=== PATIENT | male | born 1945 | race Caucasian/White ===

== ENCOUNTER → 2022-08-09 14:47 | Outpatient (CLI) | payer MEDICARE, OTHER, SELFPAY ==
--- NOTE | 2022-08-09 | DI.ECHO.S_ITS ---
[place] +---------+ [facility] +---------+ : : [address] : : : : [id number] : : : : Phone: [phone]---------+ Echocardiogram Report + + :Name: BLANE AGUILAR Study Date: 08/09/2022 Height: 72 in : :[facility] ReadingLocation: Weight: 205 lb : : Gender: Male BSA: 2.2 m2 : :: 1945 Age: 76 yrs BP: 141/72 mmHg: :Reason For Study: HYPERTENSION : :Ordering Physician: BARBARA, : :NANO Field Performed By: Kaitlin Appiah : :Referring: NANO JIMENEZ : + + Interpretation Summary The ejection fraction is estimated to be 65-70%. There is mild mitral regurgitation. There is mild tricuspid regurgitation. Procedure: A two-dimensional transthoracic echocardiogram with color flow and Doppler was performed. Comparison is made with the echocardiogram of 06/18/2017. The patient was in sinus rhythm with heart rates between 55-64 bpm during the exam. Left Ventricle: The left ventricular cavity is small. There is normal left ventricular wall thickness. The ejection fraction is estimated to be 65-70%. Left ventricular wall motion is normal. Diastolic parameters suggest probable normal left ventricular diastolic function and normal filling pressures. Right Ventricle: The right ventricle is normal in size and function. Atria: The left atrial size is normal. Right atrial size is normal. There is no Doppler evidence for an interatrial shunt. Mitral Valve: The mitral valve is normal in structure and function. There is mild mitral regurgitation. Aortic Valve: The aortic valve is trileaflet. The aortic valve opens well. There is no aortic valve stenosis. No aortic regurgitation is present. Tricuspid Valve: The tricuspid valve is normal in structure and function. There is mild tricuspid regurgitation. Pulmonic Valve: The pulmonic valve leaflets are thin and pliable; valve motion is normal. There is mild pulmonic regurgitation. Great Vessels: The aortic root is normal size. The dimensions of the ascending aorta are normal. The IVC is of normal diameter and collapses greater than 50% with a sniff. This suggests a low right atrial pressure of 3 mm Hg. Pericardium/ Pleura There is no pericardial effusion. There is no pleural effusion. MMode/2D Measurements & Calculations LVIDd: 3.5 cm LVOT diam: 1.8 cm LVIDs: 2.3 cm Ao root diam: 3.5 cm FS: 32.2 % asc Aorta Diam: 3.6 cm IVSd: 0.97 cm Ao Arch Diam (Prox Trans): 2.5 cm LVPWd: 0.95 cm LV castellon. diameter/BSA (cm/m^2): 1.6 LV sys. diameter/BSA (cm/m^2): 1.1 LA A2 area: 20.0 cm2 RA long axis: 4.3 cm LA A4 area: 16.4 cm2 RA area: 13.8 cm2 LA length (vol): 5.0 cm RA vol: 37.8 ml LA vol: 55.3 ml RA : 17.6 ml/m2 LA vol index: 25.7 ml/m2 IVC diam: 1.7 cm RVD1 (basal): 3.3 cm RVD2 (mid): 3.1 cm TAPSE: 2.9 cm Doppler Measurements & Calculations Ao V2 max: 130.3 cm/sec LVOT Max Napoleon: 115.0 cm/sec Ao V2 mean: 97.7 cm/sec LV V1 max P.3 mmHg Ao max P.8 mmHg LV V1 VTI: 27.6 cm Ao mean P.1 mmHg KAILEE(I,D): 2.3 cm2 Ao V2 VTI: 30.5 cm KAILEE(V,D): 2.3 cm2 sev ratio: 0.91 KAILEE indexed to BSA (cm^2/m^2): 1.1 MV E max napoleon: 74.0 cm/sec TR max napoleon: 247.3 cm/sec MV A max napoleon: 91.4 cm/sec TR max P.6 mmHg MV E/A: 0.81 PA V2 max: 106.7 cm/sec Med Peak E' Napoleon: 6.6 cm/sec PA V2 mean: 71.1 cm/sec E/E' med: 11.3 PA mean P.3 mmHg Lat Peak E' Napoleon: 8.6 cm/sec PA pr(Accel): 39.6 mmHg E/E' lat: 8.6 E/e' average: 10.0 MV dec time: 0.33 sec RACQUEL): 70.8 ml Reading Physician:01:24 PM
== END ==
PROVIDERS: PCP Nurse Practitioner Family; Referring Provider Nurse Practitioner Family; Visit Provider Nurse Practitioner Family
DX: I08.1 Rheumatic disorders of both mitral and tricuspid valves (principal); I48.0 Paroxysmal atrial fibrillation; I10 Essential (primary) hypertension
CPT/HCPCS: 93306

== ENCOUNTER 2023-11-08 20:19 | Emergency (ER) | payer MEDICARE, OTHER, SELFPAY ==
[2023-11-08] VITALS (7 sets, daily range): BP systolic 113–172; BP diastolic 54–78; PULSE 69–74; RESP 14–22; TEMP 38.4; O2SAT 93–96; BMI 29.5
--- NOTE | 2023-11-08 21:41 | DI.CT.S_ITS ---
PROCEDURE: CT KIDNEY URETER BLADDER (KUB) INDICATIONS: fever, new urinary incontinence had sx 2/15 TECHNIQUE: Axial sections were acquired from the lung bases to the pubic symphysis. Coronal and sagittal reformats were performed. For radiation dose reduction, the following was used: automated exposure control, adjustment of mA and/or kV according to patient size. COMPARISON: [facility], CT, CT KUB, 07/23/2023, 11:42. FINDINGS: Image quality: Diagnostic. Lower Chest: Right basilar possible consolidative versus masslike opacities measuring up to 1.6 cm. These are new compared to prior. URINARY: Right Kidney: [id number] hydronephrosis. Right Ureter: Obstructing stone within the distal ureter measuring 7 mm and 1073 Hounsfield units. Left Kidney: Nonobstructing 3 mm left renal calcifications. Left Ureter: There is a double-J ureteral stent with proximal pigtail in the proximal ureter and distal pigtail within the urethra. Bladder: Decompressed, limiting evaluation. No stones. ABDOMEN: Liver: No contour-deforming solid mass. Gallbladder: No radiopaque gallstones or wall thickening. Biliary ducts: No biliary dilation. Pancreas: No ductal dilation. Spleen: Size is within normal limits. Adrenal Glands: No adrenal nodules. Stomach and Bowel: Normal colonic caliber, without significant wall thickening. Moderate burden of stool throughout the colon. Normal appendix. Peritoneum: No abnormal intraperitoneal fluid. No free air. Ventral Wall: No hernia. Abdominal Nodes: No enlarged retroperitoneal or mesenteric lymph nodes. Vessels: Aorta and inferior vena cava are normal in size. Atherosclerotic vascular calcifications. PELVIS: Pelvic Organs: Unremarkable. Pelvic Nodes: Unremarkable. Miscellaneous: Small bilateral fat containing inguinal hernias are seen. Bones: Degenerative changes of the spine. Most pronounced at L5-S1. IMPRESSION: 1. Obstructing stone within the distal right ureter measuring 7 mm and 1073 Hounsfield units. There is mild to moderate upstream hydroureteronephrosis. 2. Nonobstructing 3 mm left renal calcifications. 3. Double-J ureteral stent within the left ureter with proximal pigtail in the proximal ureter and distal pigtail within the urethra. Recommend correlation with proper positioning. 4. Consolidated versus masslike opacities at the right lung base are new compared to prior measuring up to 1.6 cm. Recommend 3 month follow-up CT to assess for resolution. Dictated by: Moshe Winn M.D. on 11/08/2023 at 22:14 Approved by: Moshe Winn M.D. on 11/08/2023 at 22:20
[2023-11-08] MEDS: ACETAMINOPHEN 325 MG TABLET 975 MG PO (22:06)
[2023-11-08 22:23] LABS: Add Manual Diff / Slide Review NO; Basophils Absolute Auto 100 /uL (0-100); Basophils Percent Auto 0.6 % (0-2); Eosinophils Absolute Auto 0 /uL (0-450); Eosinophils Percent Auto 0.1 % (2-4); Hematocrit 42.9 % (41-53); Hemoglobin 14.5 g/dL (13.5-17.5); Lymphocytes Absolute Auto 1000 /uL (1100-4500); Lymphocytes Percent Auto 6.1 % (25-40); Mean Corpuscular HGB Conc 33.9 % (30-36); Mean Corpuscular Hemoglobin 32.5 PG (26-34); Mean Corpuscular Volume 95.9 fL (80-100); Monocytes Absolute Auto 1200 /uL (0-900); Monocytes Percent Auto 7.8 % (3-14); Neutrophils Absolute Auto 13700 /uL (1500-7000); Neutrophils Percent Auto 85.4 % (50-75); Platelet Count 184 X10^3/uL (150-400); Red Blood Cell Count 4.47 X10^6/uL (4.5-5.9); Red Cell Distribution Width 12.8 % (11.6-14.8)
[2023-11-08 22:35] LABS: Alanine Aminotransferase 18 IU/L (<50); Albumin 4.1 g/dL (3.5-5.0); Albumin Globulin Ratio 1.2 (1.0-2.8); Alkaline Phosphatase 105 U/L (38-126); Aspartate Aminotransferase 24 IU/L (17-59); BUN Creatinine Ratio 24.8 (6-22); Bilirubin Total 1.2 mg/dL (0.2-1.3); Blood Urea Nitrogen 33 mg/dL (9-20); Calcium 9.3 mg/dL (8.4-10.2); Carbon Dioxide 25 mmol/L (22-32); Chloride 106 mmol/L (98-107); Estimated Glomerular Filt Rate 54 mL/min (>60); Globulin 3.4 g/dL (1.7-4.1); Glucose 117 mg/dL (80-110); HEMOLYSIS 23 (0-50); Lactate (Lactic Acid) 1.7 mmol/L (0.7-2.1); Potassium 4.2 mmol/L (3.4-5.1); Sodium 138 mmol/L (137-145); Total Protein 7.5 g/dL (6.3-8.2)
[2023-11-08 22:52] LABS: Procalcitonin 0.16 ng/mL (<0.5)
[2023-11-08 23:16] LABS: Appearance Urine UA TURBID; Bilirubin Urine UA NEGATIVE (NEGATIVE); Color Urine UA YELLOW; Glucose Urine UA NEGATIVE (Negative); Ketones Urine UA TRACE (NEGATIVE); Leukocyte Esterase Urine UA 2+ (NEGATIVE); Nitrite Urine UA NEGATIVE (Negative); Occult Blood Urine UA 3+ (Negative); Protein Urine UA 3+ (Negative); Specific Gravity Urine UA 1.025 (1.000-1.035)
[2023-11-08 23:20] LABS: Urine Volume Low Vol <10mL (spun)
[2023-11-08 23:22] LABS: Bacteria Urine Many (>30); Mucus Urine 1+ (Negative); RBC Urine 5-10/HPF (0-5/HPF); Squamous Epithelial Cell Urine 0-1 /HPF (0-5/HPF); Transitional Epi Cells Urine 0-1/HPF (0-5/HPF); WBC Urine 30-100/HPF (0-5/HPF)
[2023-11-08 23:23] LABS: Culture Indicated Urine Specimen Cultured
--- NOTE | 2023-11-08 23:39 | DI.RAD.S_ITS ---
PROCEDURE: XR CHEST 1V INDICATIONS: fever,congestion O2 sats 93-94% TECHNIQUE: One view of the chest was acquired. COMPARISON: None. FINDINGS: Surgical changes and devices: None. Lungs and pleura: Lungs are clear. No pleural effusions or pneumothorax. Mediastinum: Mediastinal contours appear normal. Heart size is normal. Bones and chest wall: No suspicious bony lesions. Overlying soft tissues appear unremarkable. IMPRESSION: No acute cardiopulmonary abnormality is seen. Dictated by: Moshe Winn M.D. on 11/09/2023 at 0:11 Approved by: Moshe Winn M.D. on 11/09/2023 at 0:11
--- NOTE | 2023-11-08 23:43 | ED_ITS ---
HPI - Male Genitourinary General Chief complaint: Urogenital-Male Stated complaint: urinary incontinence Time Seen by Provider: 11/08/23 21:40 Source: patient Mode of arrival: Ambulatory History of Present Illness HPI Narrative: 77-year-old male history of hypertension, dyslipidemia, bladder cancer with recent surgery on his bladder as well as on the left ureter with removal of mass of the left ureter. Patient states he is scheduled to have the right-sided ureteral stone removed has not 19 of November. Patient states he came in today because he developed hairs in his had worsening incontinence. He has been in touch with his Urology team at [facility]. No chest pain or shortness of breath no abdominal back or flank pain. No dysuria urgency but is having incontinence. Patient states had some mild constipation. No cough, cold or congestion. Related Data Home Medications Medication Instructions Recorded Confirmed ASPIRIN (Aspirin EC) 81 mg PO Q DAY ##0 02/08/11 10/02/18 Fish Oil 3,000 mg PO Q DAY ##0 02/08/11 10/02/18 sildenafil 50 mg tablet (Viagra) 50 mg PO PRN ##0 02/08/11 10/02/18 naproxen sodium 220 mg tablet Q DAY ##0 05/06/12 10/02/18 calcium carbonate 500 mg calcium 2 tab PO QDAY ##0 05/10/16 10/02/18 (1,250 mg) tablet cholecalciferol (vitamin D3) 10 400 unit PO QDAY ##0 05/10/16 10/02/18 mcg (400 unit) capsule (Vitamin D3) mirtazapine 15 mg tablet 15 mg PO DAILY 10/02/18 10/02/18 Previous Rx's Medication Instructions Recorded valacyclovir 1 gram tablet 1,000 mg PO QDAY #90 tabs 07/30/16 bupropion HCl 150 mg tablet,12 hr 150 mg PO BID #180 tabs 01/31/17 sustained-release (Wellbutrin SR) ranitidine HCl 150 mg tablet 150 mg PO BID #60 tabs 05/07/17 (Zantac) apixaban 5 mg tablet (Eliquis) 5 mg PO BID #60 tabs 05/30/17 diltiazem HCl 120 mg 120 mg PO BID #180 mg 05/30/17 capsule,extended release 24 hr Allergies Allergy/AdvReac Type Severity Reaction Status Date / Time citalopram [CITALOPRAM] AdvReac Mild UNKNOWN, Verified 11/09/23 00:21 DISCOMFORT Review of Systems Review of Systems ROS Unobtainable: All systems reviewed & are unremarkable except as noted in HPI and below Patient History Medical History Insomnia, unspecified Snoring Obstructive sleep apnea of adult Atrial fibrillation (~05/2017) Social History marital status: details: rolando Noguera, lives on [place] household members: spouse lives independently: Yes caregiver/support person: No Smoking Status: Never smoker Smoking Status: Never smoker alcohol intake frequency: a few times a month Exam Narrative Exam Narrative: GENERAL: Alert and oriented x three, male in mild distress. Patient feels warm to the touch. HEENT: Head normocephalic, atraumatic, EOMI, pupils reactive, face symmetric, moist mucous membranes NECK: Supple, full range of motion CARDIOVASCULAR: Regular rate and rhythm without murmurs, rubs or gallops. RESPIRATORY: Breath sounds equal bilaterally, no wheezes rales or rhonchi. ABDOMEN: Soft, nontender. Normoactive bowel sounds all 4 quadrants. No guarding or rebound, rigidity, no mass : No CVA tenderness, patient has string from urethra. EXTREMITIES: Normal range of motion, no clubbing or edema. Neurovascularly intact NEUROLOGICAL: Cranial nerves II through XII grossly intact. Moving all extremities SKIN: Warm, dry, no petechiae, no rashes or lesions. Initial Vital Signs Initial Vital Signs: Vital Signs Temperature 101.1 F H 11/08/23 21:07 Pulse Rate 73 11/08/23 21:07 Respiratory Rate 16 11/08/23 21:07 Blood Pressure 172/78 H 11/08/23 21:07 Pulse Oximetry 96 11/08/23 21:07 Oxygen Delivery Method Room Air 11/08/23 21:07 Course Orders Ordered: ED Orders 11/08/23 21:40 EKG-12 Lead Stat 11/08/23 21:41 CT kidney ureter bladder (KUB) Stat 11/08/23 22:13 Complete Blood Count AUTO DIFF Stat Comprehensive Metabolic Panel Stat Lactate (Lactic Acid) Stat Procalcitonin Stat 11/08/23 23:00 Urinalysis and Microscopic Stat Urine Culture Stat 11/08/23 23:17 Blood Culture Stat 11/08/23 23:39 XR chest 1V Stat 11/09/23 01:05 COVID19 -Nasal RAPID Stat Sodium Chloride (Normal Saline 0.9%) 1,000 mls @ 125 mls/hr IV BOLUS ONE Stop: 11/09/23 11:10 Last Infusion: 11/09/23 04:41 Dose: Infused Documented By: Infusion: 11/09/23 03:21 Dose: 999 mls/hr Documented By: Admin: 11/09/23 03:13 Dose: 125 mls/hr Documented By: EMERALD NOREPINEPHRINE BITARTRATE/D5W (Levophed) 4 mg in 250 mls @ 34.019 mls/hr IV TITRATE PORTER; Protocol Last Admin: 11/09/23 05:19 Dose: 0.1 mcg/kg/min, 34.019 mls/hr Documented By: EMERALD Discontinued Medications Acetaminophen (Acetaminophen 325 Mg Tablet) 975 mg PO NOW ONE Stop: 11/08/23 21:41 Last Admin: 11/08/23 22:06 Dose: 975 mg Documented By: RADHA Sodium Chloride (Normal Saline 0.9%) 1,000 mls @ 1,000 mls/hr IV BOLUS ONE Stop: 11/09/23 00:43 Last Admin: 11/09/23 01:20 Dose: Not Given Documented By: NEETA Levofloxacin (Levaquin) 750 mg in 150 mls @ 100 mls/hr IV NOW ONE Stop: 11/09/23 01:14 Last Infusion: 11/09/23 02:27 Dose: Infused Documented By: Admin: 11/09/23 00:19 Dose: 100 mls/hr Documented By: NEETA Sodium Chloride (Normal Saline 0.9%) 2,121 mls @ 707 mls/hr 30 ml/kg infuse over 3 hr (2121 ml) IV NOW ONE Stop: 11/09/23 04:11 Last Infusion: 11/09/23 03:10 Dose: Infused Documented By: Admin: 11/09/23 00:19 Dose: 707 mls/hr Documented By: NEETA Piperacillin Sod/Tazobactam (Sod 4.5 gm/ Sodium Chloride) 100 mls @ 200 mls/hr IV NOW ONE Stop: 11/09/23 01:44 Last Infusion: 11/09/23 03:10 Dose: Infused Documented By: Admin: 11/09/23 02:35 Dose: 200 mls/hr Documented By: EMERALD Sodium Chloride (Normal Saline 0.9%) 1,000 mls @ 500 mls/hr IV BOLUS ONE Stop: 11/09/23 05:17 Last Admin: 11/09/23 04:41 Dose: 125 mls/hr Documented By: EMERALD Ibuprofen (Ibuprofen 400 Mg Tablet) 800 mg PO NOW ONE Stop: 11/08/23 23:40 Last Admin: 11/09/23 00:19 Dose: 800 mg Documented By: NEETA Tamsulosin HCl (Tamsulosin 0.4 Mg Capsule) 0.4 mg PO NOW ONE Stop: 11/09/23 00:50 Last Admin: 11/09/23 00:54 Dose: 0.4 mg Documented By: NEETA Vital Signs Vital signs: Vital Signs - 8 hr 11/08/23 22:23 11/08/23 22:25 11/08/23 22:25 Temperature Pulse Rate 74 72 Respiratory Rate 16 Blood Pressure 138/65 Pulse Oximetry 95 94 Oxygen Delivery Method 11/08/23 22:30 11/08/23 22:30 11/08/23 23:00 Temperature Pulse Rate 71 Respiratory Rate 14 Blood Pressure 134/59 L 116/58 L Pulse Oximetry 96 Oxygen Delivery Method Room Air 11/08/23 23:00 11/08/23 23:26 11/08/23 23:26 Temperature 101.1 F H 101.1 F H Pulse Rate 69 Respiratory Rate 21 Blood Pressure Pulse Oximetry 93 Oxygen Delivery Method Room Air 11/08/23 23:30 11/08/23 23:30 11/09/23 00:00 Temperature Pulse Rate 73 70 Respiratory Rate 22 20 Blood Pressure 113/54 L Pulse Oximetry 93 95 Oxygen Delivery Method 11/09/23 00:00 11/09/23 00:30 11/09/23 00:30 Temperature Pulse Rate 66 Respiratory Rate 20 Blood Pressure 114/69 111/58 L Pulse Oximetry 94 Oxygen Delivery Method 11/09/23 00:49 11/09/23 01:00 11/09/23 01:00 Temperature 98.1 F Pulse Rate 64 Respiratory Rate 16 Blood Pressure 105/59 L Pulse Oximetry 97 Oxygen Delivery Method 11/09/23 01:30 11/09/23 01:30 11/09/23 02:00 Temperature Pulse Rate 64 Respiratory Rate 13 Blood Pressure 106/57 L 105/57 L Pulse Oximetry 95 Oxygen Delivery Method 11/09/23 02:00 11/09/23 02:30 11/09/23 02:30 Temperature Pulse Rate 63 62 Respiratory Rate 18 19 Blood Pressure 103/57 L Pulse Oximetry 95 94 Oxygen Delivery Method Room Air 11/09/23 03:00 11/09/23 03:00 11/09/23 03:03 Temperature Pulse Rate 61 62 Respiratory Rate 17 19 Blood Pressure 99/55 L Pulse Oximetry 94 94 Oxygen Delivery Method Room Air 11/09/23 03:04 11/09/23 03:04 11/09/23 03:10 Temperature Pulse Rate 61 Respiratory Rate 17 Blood Pressure 94/53 L 93/52 L Pulse Oximetry 95 Oxygen Delivery Method 11/09/23 03:10 11/09/23 03:20 11/09/23 03:20 Temperature Pulse Rate 61 63 Respiratory Rate 13 23 Blood Pressure 93/52 L Pulse Oximetry 94 95 Oxygen Delivery Method 11/09/23 03:30 11/09/23 03:30 11/09/23 03:40 Temperature Pulse Rate 63 Respiratory Rate 13 Blood Pressure 106/58 L 93/55 L Pulse Oximetry 94 Oxygen Delivery Method Room Air 11/09/23 03:40 11/09/23 03:50 11/09/23 03:50 Temperature Pulse Rate 63 64 Respiratory Rate 16 12 Blood Pressure 94/53 L Pulse Oximetry 93 93 Oxygen Delivery Method Room Air 11/09/23 04:00 11/09/23 04:00 11/09/23 04:10 Temperature Pulse Rate 67 64 Respiratory Rate 16 9 L Blood Pressure 106/58 L Pulse Oximetry 94 95 Oxygen Delivery Method 11/09/23 04:10 11/09/23 04:20 11/09/23 04:20 Temperature Pulse Rate 63 Respiratory Rate 12 Blood Pressure 106/57 L 92/53 L Pulse Oximetry 94 Oxygen Delivery Method 11/09/23 04:30 11/09/23 04:30 11/09/23 04:40 Temperature 97.9 F Pulse Rate 63 Respiratory Rate 8 L Blood Pressure 104/59 L 94/50 L Pulse Oximetry 94 Oxygen Delivery Method Room Air 11/09/23 04:40 11/09/23 04:50 11/09/23 04:50 Temperature Pulse Rate 64 62 Respiratory Rate 11 L 12 Blood Pressure 102/55 L Pulse Oximetry 93 93 Oxygen Delivery Method 11/09/23 05:00 11/09/23 05:00 11/09/23 05:10 Temperature Pulse Rate 62 Respiratory Rate 14 Blood Pressure 92/51 L 131/65 Pulse Oximetry 93 Oxygen Delivery Method 11/09/23 05:10 11/09/23 05:20 11/09/23 05:20 Temperature Pulse Rate 79 63 Respiratory Rate 26 H 13 Blood Pressure 103/53 L Pulse Oximetry 94 95 Oxygen Delivery Method MDM - Male Genitourinary Lab Data 11/08/23 22:13 11/08/23 22:13 Labs: Lab Results 11/08/23 11/08/23 11/09/23 Range/Units 22:13 23:00 01:05 WBC 16.0 H (4.5-11.0) X10^3/uL RBC 4.47 L (4.5-5.9) X10^6/uL Hgb 14.5 (13.5-17.5) g/dL Hct 42.9 (41-53) % MCV 95.9 (80-100) fL MCH 32.5 (26-34) PG MCHC 33.9 (30-36) % RDW 12.8 (11.6-14.8) % Plt Count 184 (150-400) X10^3/uL Neut % (Auto) 85.4 H (50-75) % Lymph % (Auto) 6.1 L (25-40) % Wheeler % (Auto) 7.8 (3-14) % Eos % (Auto) 0.1 L (2-4) % Baso % (Auto) 0.6 (0-2) % Neut # (Auto) 46134 H (9981-3703) /uL Lymph # (Auto) 1000 L (2128-8729) /uL Wheeler # (Auto) 1200 H (0-900) /uL Eos # (Auto) 0 (0-450) /uL Baso # (Auto) 100 (0-100) /uL Sodium 138 (137-145) mmol/L Potassium 4.2 (3.4-5.1) mmol/L Chloride 106 (98-107) mmol/L Carbon Dioxide 25 (22-32) mmol/L BUN 33 H (9-20) mg/dL Creatinine 1.33 H (0.66-1.25) mg/dL Estimated GFR 54 L (>60) mL/min BUN/Creatinine Ratio 24.8 H (6-22) Glucose 117 H (80-110) mg/dL Lactate 1.7 (0.7-2.1) mmol/L Calcium 9.3 (8.4-10.2) mg/dL Total Bilirubin 1.2 (0.2-1.3) mg/dL AST 24 (17-59) IU/L ALT 18 (<50) IU/L Alkaline Phosphatase 105 (38-126) U/L Total Protein 7.5 (6.3-8.2) g/dL Albumin 4.1 (3.5-5.0) g/dL Globulin 3.4 (1.7-4.1) g/dL Albumin/Globulin Ratio 1.2 (1.0-2.8) Procalcitonin 0.16 (<0.5) ng/mL Urine Color Yellow Urine Appearance Turbid Urine pH 6.0 (4.5-8.0) Ur Specific [place] 1.025 (1.000-1.035) Urine Protein 3+ H (Negative) Urine Glucose (UA) Negative (Negative) g/dL Urine Ketones Trace H (NEGATIVE) Urine Occult Blood 3+ H (Negative) Urine Nitrate Negative (Negative) Urine Bilirubin Negative (NEGATIVE) Urine Urobilinogen 1.0 (0.2) E.U./dL Ur Leukocyte Esterase 2+ H (NEGATIVE) Urine RBC 5-10/hpf H (0-5/HPF) Urine WBC 30-100/hpf H (0-5/HPF) Ur Squamous Epith Cells 0-1 /hpf (0-5/HPF) Ur Transition Epith Cell 0-1/hpf (0-5/HPF) Urine Bacteria Many (>30) H (None) Urine Mucus 1+ H (Negative) Ur Culture Indicated? Specimen cultured Vol Urine Centrifuged Low vol <10ml (spun) A SARS-CoV-2 (PCR) Negative (Negative) Urine Dip Bedside Urine Glucose Negative Bedside Urine Bilirubin - Negative Bedside Urine Ketone +/- 5 Urine Specific [place] 1.030 Bedside Urine Occult Blood +++ Bedside Urine pH 6.0 Bedside Urine Protein +++ 300 Bedside Urine Urobilinogen - Negative Bedside Urine Nitrite - Negative Bedside Urine Leukocytes +++ [address] scan - abdomen/pelvis: Radiologist's Impression: Close Abdomen/Pelvis CT (Signed) Moshe Winn - 11/08/23 Echocardiogram Ultrasound (Signed) George Membreno - 08/09/[address] [address] [address] Scan Report Signed Patient: Jason Geiger MR#: [id number] : 1945 Acct:[id number] Age/Sex: 77 / M Date of Service: 11/08/23 Loc: ED Accession Number: [id number] Procedure: CT kidney ureter bladder (KUB) Ordering Provider: Sabrina Berger D.O. PROCEDURE: CT KIDNEY URETER BLADDER (KUB) INDICATIONS: fever, new urinary incontinence had sx 2/15 TECHNIQUE: Axial sections were acquired from the lung bases to the pubic symphysis. Coronal and sagittal reformats were performed. For radiation dose reduction, the following was used: automated exposure control, adjustment of mA and/or kV according to patient size. COMPARISON: [facility], CT, CT KUB, 07/23/2023, 11:42. FINDINGS: Image quality: Diagnostic. Lower Chest: Right basilar possible consolidative versus masslike opacities measuring up to 1.6 cm. These are new compared to prior. URINARY: Right Kidney: [id number] hydronephrosis. Right Ureter: Obstructing stone within the distal ureter measuring 7 mm and 1073 Hounsfield units. Left Kidney: Nonobstructing 3 mm left renal calcifications. Left Ureter: There is a double-J ureteral stent with proximal pigtail in the proximal ureter and distal pigtail within the urethra. Bladder: Decompressed, limiting evaluation. No stones. ABDOMEN: Liver: No contour-deforming solid mass. Gallbladder: No radiopaque gallstones or wall thickening. Biliary ducts: No biliary dilation. Pancreas: No ductal dilation. Spleen: Size is within normal limits. Adrenal Glands: No adrenal nodules. Stomach and Bowel: Normal colonic caliber, without significant wall thickening. Moderate burden of stool throughout the colon. Normal appendix. Peritoneum: No abnormal intraperitoneal fluid. No free air. Ventral Wall: No hernia. Abdominal Nodes: No enlarged retroperitoneal or mesenteric lymph nodes. Vessels: Aorta and inferior vena cava are normal in size. Atherosclerotic vascular calcifications. PELVIS: Pelvic Organs: Unremarkable. Pelvic Nodes: Unremarkable. Miscellaneous: Small bilateral fat containing inguinal hernias are seen. Bones: Degenerative changes of the spine. Most pronounced at L5-S1. IMPRESSION: 1. Obstructing stone within the distal right ureter measuring 7 mm and 1073 Hounsfield units. There is mild to moderate upstream hydroureteronephrosis. 2. Nonobstructing 3 mm left renal calcifications. 3. Double-J ureteral stent within the left ureter with proximal pigtail in the proximal ureter and distal pigtail within the urethra. Recommend correlation with proper positioning. 4. Consolidated versus masslike opacities at the right lung base are new compared to prior measuring up to 1.6 cm. Recommend 3 month follow-up CT to assess for resolution. Dictated by: Moshe Winn M.D. on 11/08/2023 at 22:14 Approved by: Moshe Winn M.D. on 11/08/2023 at 22:20 ECG Data Attestation: I personally reviewed and interpreted this ECG as follows: Interpretation: NSR rate of 72, qr 152, qrs 74, qtc 413. No acute ST changes. [facility] Narrative Medical decision making narrative: 77-year-old male with recent bladder surgery, ureteral stents known kidney stone who developed in worsening incontinence. Patient is febrile here, has white count of 16 platelets are appropriate with a hemoglobin of 14 creatinine 1.33 appears improved from 1.5 in 2017. BUN 33, electrolytes are otherwise appropriate glucose is 117 lactate LFTs are negative. Broke out is negative. Blood cultures were obtained. UA shows 3+ protein, trace ketones, 3+ blood, 2+ leuks, 5-10 RBCs 3200 WBCs, many bacteria was 0-1 squamous epithelials. Sent for culture. Patient meets septic criteria with fever, white count of 16, respirations 16 with a if his 70s and blood pressures been on 130s initially. CT KUB shows obstructing stone distal right ureter measuring 7 mm, [id number] upstream hydroureteronephrosis. Patient is aware of this as well as a nonobstructing 3 mm left stone and double-J ureteral stents on the left and a distal pigtail within the urethra. Consolidation versus masslike opacities in the right lung base new compared to prior measuring up to 1.6 cm Patient gets his care through [facility], we do not have any Urology on-call today. Contacted [facility] for transfer for Urology for sepsis with a obstructing renal stone. Patient received fluids, Levaquin. 1213am [facility]. spoke with coordinator [id number]. Spoke with Dr. Sesay [facility] -[id number] accepts for transfer, does ask that we add Zosyn as they have a lot of fluoroquinolone resistance locally. Bed availability at . Did review patient's pressures have been soft in the 100 systolic range. Coordinator asked for re-contact if they drop into the 90s as that would change bed assignment. [address] Woods hospitalist who accepts for [place], awaiting transfer Recontacted , systolic blood pressure has continued to move down words is currently in the 90s, it has not map of 69 but patient continues to have a slow downward trajectory. Patient has received 2.1 liters of normal saline. Gave additional 500ml bolus and back up to 100systolic range. On examination patient overall is asymptomatic. Did update 0400 they asked to keep us appraised then update if we have to start nor epi but at this time patient can still transfer there is an ICU bed available if needed. Norepi gtt ordered but not given. Sent with EMS 2nd to prolonged transport time, know [facility] [place] [address] and early hour commuter traffic. Most recent BP was 103 systolic but had one isolated 130. Verified okay to send patient with current blood pressures. Discharge Plan Departure Patient Disposition: [facility] Clinical Impression: Acute UTI, Kidney stone on right side, Sepsis Prescriptions: No Action ASPIRIN (Aspirin EC) 81 mg PO Q DAY Qty: 0 sildenafil [Viagra] 50 MG tablet 50 mg PO PRN Qty: 0 Fish Oil 3,000 mg PO Q DAY Qty: 0 naproxen sodium 220 MG tablet Q DAY Qty: 0 calcium carbonate 500 MG tablet 2 tab PO QDAY Qty: 0 cholecalciferol (vitamin D3) [Vitamin D3] 400 UNIT capsule 400 unit PO QDAY Qty: 0 valacyclovir 1,000 MG tablet 1,000 mg PO QDAY Qty: 90 3RF bupropion HCl [Wellbutrin SR] 150 MG tablet extended release 12 hr 150 mg PO BID Qty: 180 1RF ranitidine HCl [Zantac] 150 MG tablet 150 mg PO BID Qty: 60 0RF diltiazem HCl 120 MG capsule,extended release 24hr 120 mg PO BID Qty: 180 1RF apixaban [Eliquis] 5 MG tablet 5 mg PO BID Qty: 60 1RF mirtazapine 15 mg tablet 15 mg PO DAILY Referrals: Rose Escobedo ARNP [Primary Care Provider] -
[2023-11-09] VITALS (24 sets, daily range): BP systolic 92–131; BP diastolic 50–69; PULSE 61–79; RESP 8–26; TEMP 36.6–36.7; O2SAT 93–97
[2023-11-09] MEDS: SODIUM CHLORIDE 0.9% 2,121 ML 707 ML IV (00:19)
[2023-11-09] MEDS: IBUPROFEN 400 MG TABLET 800 MG PO (00:19)
[2023-11-09] MEDS: levoFLOXacin 750 MG/150 ML PIGGYBACK 100 MG IV (00:19)
[2023-11-09] MEDS: TAMSULOSIN 0.4 MG CAPSULE PO (00:54)
[2023-11-09 01:25] LABS: COVID19 -Nasal RAPID Negative (Negative)
--- NOTE | 2023-11-09 01:42 | PC.NURSE ---
1215- was paged for consult and transfer 0125- [facility] has no beds at this time, pt is on waitlist 0130- 's facesheet and images were pushed 0135- [facility] and are not accepting patients and not doing a waitlist at this time.
[2023-11-09] MEDS: PIPERACILLIN/TAZO 4.5 GM in SODIUM CHLORIDE 0.9% 100 ML IV (02:35)
[2023-11-09] MEDS: SODIUM CHLORIDE 0.9% 1,000 ML 125 ML IV ×2 (03:13→04:41)
[2023-11-09] MEDS: NOREPINEPHRINE BITARTRATE/D5W 4 MG/250 ML PLAST..BAG 34.019 MG IV (05:19)
== END 2023-11-09 05:46 | disposition short-term general hospital (02) ==
PROVIDERS: Emergency Provider Emergency Medicine; PCP Nurse Practitioner Family
DX: N20.0 Calculus of kidney (principal); A41.9 Sepsis, unspecified organism; N39.0 Urinary tract infection, site not specified; K59.00 Constipation, unspecified; Z79.01 Long term (current) use of anticoagulants; Z20.822 Contact with and (suspected) exposure to COVID-19
CPT/HCPCS: 36415; 71045; 74176; 80053; 81001; 81003; 83605; 84145; 85025; 87040; 87077; 87086; 87186; 87635; 93005; 96361; 96365; 96366; 96367; 96375; 99284; J1956; J2543